=== PATIENT | male | born 1995 | race Caucasian/White ===

== ENCOUNTER 2017-02-12 22:39 | Emergency (ER) | payer OTHER ==
[~2017-02-12] VITALS: Ht 170.2 cm; Wt 70.0 kg
[2017-02-12 22:42] VITALS: BP 144/88; PULSE 97; RESP 16; TEMP 98.2; O2SAT 99
[2017-02-12] MEDS ORDERED: TETANUS/DIPHTHERIA TOXOID ADULT 0.5 ML VIAL IM ONE (22:45)
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
[2017-02-12] MEDS ORDERED: LIDOCAINE 1%/EPINEPHrine 1:100,000 SOLN 20 ML VIAL INFIL ONE (23:45)
[2017-02-12] MEDS ORDERED: LIDOCAINE HCL 1% 50 ML VIAL INFIL ONE (23:45)
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
[2017-02-13 03:08] VITALS: BP 121/87; PULSE 105; RESP 18; O2SAT 100
[2017-02-13 05:35] VITALS: BP 165/81
== END 2017-02-13 06:00 | disposition home or self-care (01) ==
LOC: NEPA 22:39
DX: S01.81XA Laceration without foreign body of other part of head, initial encounter (principal); Z23 Encounter for immunization; V49.49XA Driver injured in collision with other motor vehicles in traffic accident, initial encounter; Y93.89 Activity, other specified; Y92.410 Unspecified street and highway as the place of occurrence of the external cause
CPT/HCPCS: 12013; 12054; 70450; 72125; 80048; 80307; 90471; 90714